=== PATIENT | female | born 1985 | race Caucasian/White ===

== ENCOUNTER 2017-05-06 22:10 | Emergency (ER) | payer OTHER ==
[~2017-05-06] VITALS: Ht 162.6 cm; Wt 69.0 kg
[2017-05-06] MEDS ORDERED: PRENATAL (22:54)
[2017-05-06 22:55] LABS: ABSOLUTE NEUTROPHILS 4.2 thou/uL (1.4-8.2); BASOPHILS 0.3 % (0.0-2.0); EOSINOPHILS 1.5 % (0.0-3.0); HEMATOCRIT 40.1 % (37.0-47.0); HEMOGLOBIN 13.4 gm/dL (12.0-15.0); LYMPHOCYTES 35.4 % (24.0-44.0); MCH 28.7 pg (26.0-34.0); MCHC 33.5 g/dL (28.0-37.0); MCV 85.7 fL (80.0-100.0); MONOCYTES 10.5 % (1.0-8.0); PLATELET COUNT 240 thou/uL (150-400); POLYS 52.3 % (36.0-66.0); RBC 4.68 mil/uL (4.20-5.00); RDW 12.7 % (10.5-14.5)
[2017-05-06 22:56] LABS: MANUAL DIFF NO
[2017-05-07 00:15] VITALS: BP 114/66
== END 2017-05-07 00:17 | disposition home or self-care (01) ==
LOC: ER 22:10 → EDBD 22:10 → ER 05-07 00:17
PROVIDERS: Emergency Medicine
DX: O20.0 Threatened abortion (principal); Z3A.01 Less than 8 weeks gestation of pregnancy